=== PATIENT | female | born 1975 | race Caucasian/White ===

== ENCOUNTER 2019-09-18 21:51 | Emergency (ER) | payer OTHER ==
[~2019-09-18] VITALS: Ht 170.1 cm; Wt 108.9 kg
[~2019-09-18 21:51] MED LIST: ASPIR 8181 MG PO; AUGMENTIN 875 M1 TAB PO; IBUPROFEN 30 M800 MG PO; MOM30 M1 PO; NAPROSYN500 MG PO; NKHM; PERCOCET 325 MG1 TA5 PO; PROTONIX20 MG PO; VICODIN ES 7501 TA1 PO
[2019-09-18 21:56] VITALS: BP 110/66
[2019-09-18 22:27] LABS: BASO % 0.3 % (0.0-1.0); EOS # 0.2 10*3/uL (0.0-0.4); EOS % 1.9 % (1.0-4.0); HEMATOCRIT 41.4 % (37.0-47.0); HEMOGLOBIN 13.3 g/dl (12.0-16.0); LYMPH # 2.5 10*3/uL (1.3-4.4); LYMPH % 25.7 % (27.0-41.0); MEAN CORPUSCULAR HGB 29.9 pg (27.0-31.0); MEAN CORPUSCULAR HGB CONC 32.1 g/dl (33.0-37.0); MEAN PLATELET VOLUME 11.1 fl (9.6-12.3); MONO # 0.5 10*3/uL (0.1-1.0); MONO % 5.1 % (3.0-9.0); NEUT # 6.4 10*3/uL (2.3-7.9); NEUT % 66.6 % (47.0-73.0); PLATELET COUNT AUTOMATED 188 10*3/uL (130-400); RED BLOOD COUNT 4.45 10*6/uL (4.10-5.10); RED CELL DISTRI WIDTH 14.5 % (0-14.5); WHITE BLOOD COUNT 9.5 10*3/uL (4.8-10.8)
[2019-09-18 22:37] LABS: ACT PARTIAL THROMBO TIME 27.1 SECONDS (20.0-32.1); INTERNATIONAL NORM RATIO 0.9 (2.0-3.5)
[2019-09-18 22:46] LABS: ALKALINE PHOSPHATASE 63 U/L (45-117); BUN 13 mg/dl (7-24); CHLORIDE 107 mmol/L (98-107); CREATININE 1.03 mg/dL (0.55-1.02); POTASSIUM 3.8 mmol/L (3.5-5.1); SGOT/AST 22 IU/L (3-35); SGPT/ALT 38 U/L (12-78); SODIUM 138 mmol/L (136-145); TOTAL PROTEIN 7.1 gm/dL (6.4-8.2)
== END 2019-09-19 00:18 | disposition home or self-care (01) ==
LOC: ED 21:51
PROVIDERS: Internal Medicine
DX: S86.912A Strain of unspecified muscle(s) and tendon(s) at lower leg level, left leg, initial encounter (principal); Z79.899 Other long term (current) drug therapy; W19.XXXA Unspecified fall, initial encounter; Y93.89 Activity, other specified; Y92.89 Other specified places as the place of occurrence of the external cause; Y99.8 Other external cause status

== ENCOUNTER 2019-12-03 15:18 | Emergency (ER) | payer OTHER ==
[~2019-12-03] VITALS: Wt 113.4 kg
[2019-12-03 15:49] VITALS: BP 168/78
== END 2019-12-03 17:00 | disposition left against medical advice (07) ==
LOC: ED 15:18
DX: F10.229 Alcohol dependence with intoxication, unspecified (principal); Z79.899 Other long term (current) drug therapy

== ENCOUNTER 2020-08-01 19:25 | Emergency (ER) | payer OTHER ==
[~2020-08-01] VITALS: Wt 104.3 kg
[2020-08-01 19:43] VITALS: BP 108/82
[2020-08-01] MEDS ORDERED: CORTISPORIN SOL10 M1 OT (20:36)
== END 2020-08-01 20:46 | disposition home or self-care (01) ==
LOC: ED 19:25
DX: H60.501 Unspecified acute noninfective otitis externa, right ear (principal); K08.89 Other specified disorders of teeth and supporting structures; M54.2 Cervicalgia; F17.200 Nicotine dependence, unspecified, uncomplicated

== ENCOUNTER 2022-03-22 12:03 | Emergency (ER) | payer OTHER ==
[~2022-03-22 12:03] MED LIST changes: +CORTISPORIN SOL10 M1 OT
[2022-03-22 12:28] VITALS: BP 114/76
[2022-03-22] MEDS ORDERED: CLINDAMYCIN HC300 MG PO (12:54)
[2022-03-22] MEDS ORDERED: Motrin,Rufen800 MG PO (12:54)
== END 2022-03-22 12:47 | disposition home or self-care (01) ==
LOC: ED 12:03
DX: K08.89 Other specified disorders of teeth and supporting structures (principal); Z79.2 Long term (current) use of antibiotics; Z90.49 Acquired absence of other specified parts of digestive tract; Z98.890 Other specified postprocedural states

== ENCOUNTER 2022-09-03 15:10 | Emergency (ER) | payer OTHER ==
[~2022-09-03] VITALS: Ht 170.1 cm; Wt 117.9 kg
[~2022-09-03 15:10] MED LIST changes: +CLINDAMYCIN HC300 MG PO; +Motrin,Rufen800 MG PO
[2022-09-03 15:39] VITALS: BP 123/70
== END 2022-09-03 17:57 | disposition left against medical advice (07) ==
LOC: ED 15:10
DX: J02.9 Acute pharyngitis, unspecified (principal); Z53.21 Procedure and treatment not carried out due to patient leaving prior to being seen by health care provider; H66.93 Otitis media, unspecified, bilateral

== ENCOUNTER 2023-11-11 08:37 | Emergency (ER) | payer OTHER ==
[~2023-11-11] VITALS: Ht 167.6 cm; Wt 122.5 kg
[2023-11-11 08:43] VITALS: BP 155/83
[2023-11-11] MEDS ORDERED: AMOX-CLAV 875-1 EACH PO (08:50)
== END 2023-11-11 08:58 | disposition home or self-care (01) ==
LOC: ED 08:37
DX: K04.7 Periapical abscess without sinus (principal); Z90.49 Acquired absence of other specified parts of digestive tract; Z90.89 Acquired absence of other organs; Z98.890 Other specified postprocedural states; F17.200 Nicotine dependence, unspecified, uncomplicated

== ENCOUNTER 2023-11-29 18:54 | Emergency (ER) | payer OTHER ==
[~2023-11-29] VITALS: Ht 167.6 cm; Wt 117.9 kg
[~2023-11-29 18:54] MED LIST changes: +AMOX-CLAV 875-1 EACH PO
[2023-11-29 19:06] VITALS: BP 100/58
[2023-11-29] MEDS ORDERED: CLINDAMYCIN HCL 300 MG CAPSULE PO ONE (19:20)
[2023-11-29] MEDS ORDERED: NAPROSYN500 MG PO (19:22)
[2023-11-29] MEDS ORDERED: PERIDEX118 ML PO (19:22)
[2023-11-29] MEDS ORDERED: CLINDAMYCIN HC300 MG PO (19:22)
[2023-11-29] MEDS ORDERED: Ketorolac Tromethamine 30 MG/ML VIAL IM ONE (19:25)
== END 2023-11-29 19:51 | disposition home or self-care (01) ==
LOC: ED 18:54
DX: K02.9 Dental caries, unspecified (principal); R59.0 Localized enlarged lymph nodes; Z79.2 Long term (current) use of antibiotics; Z98.890 Other specified postprocedural states

== ENCOUNTER 2024-01-04 14:43 | Emergency (ER) | payer OTHER ==
[~2024-01-04] VITALS: Ht 167.6 cm; Wt 122.5 kg
[~2024-01-04 14:43] MED LIST changes: +PERIDEX118 ML PO
[2024-01-04 14:52] VITALS: BP 130/82
[2024-01-04 15:14] LABS: BILIRUBIN 1+ (Negative); BLOOD 2+ (Negative); CLARITY Turbid (Clear); COLOR Dark Yellow (Yellow); GLUCOSE Negative (Negative); KETONE Trace (Negative); LEUKO ESTERASE 2+ (Negative); NITRITE Positive (Negative); PH 5.5 (4.5-8.0); SPECIFIC GRAVITY >= 1.030 (1.001-1.030)
[2024-01-04 15:38] LABS: BACTERIA 3+; MUCOUS 2+; WBC TNTC wbc/hpf (0-5)
[2024-01-04 15:39] LABS: CALCIUM OXALATE CRYSTALS 1+
[2024-01-04] MEDS ORDERED: PYRIDIUM200 M1 PO (16:24)
[2024-01-04] MEDS ORDERED: SEPTDS PO (16:24)
[2024-01-04] MEDS ORDERED: Phenazopyridine Hydrochlorid2 100 MG TAB PO ONE (16:25)
[2024-01-04] MEDS ORDERED: Sulfamethoxazole/Trimethopri 1 TAB TAB PO ONE (16:25)
== END 2024-01-04 16:31 | disposition home or self-care (01) ==
LOC: ED 14:43
PROVIDERS: Physician Assistant
DX: N39.0 Urinary tract infection, site not specified (principal); Z90.49 Acquired absence of other specified parts of digestive tract; Z98.890 Other specified postprocedural states; Z90.89 Acquired absence of other organs

== ENCOUNTER 2024-03-14 12:35 | Emergency (ER) | payer OTHER ==
[~2024-03-14] VITALS: Wt 122.5 kg
[~2024-03-14 12:35] MED LIST changes: +PYRIDIUM200 M1 PO; +SEPTDS PO
[2024-03-14 13:21] VITALS: BP 128/69
[2024-03-14] MEDS ORDERED: CLINDAMYCIN HC300 MG PO (13:38)
== END 2024-03-14 13:41 | disposition home or self-care (01) ==
LOC: ED 12:35
DX: K02.9 Dental caries, unspecified (principal); Z90.49 Acquired absence of other specified parts of digestive tract; Z98.890 Other specified postprocedural states

== ENCOUNTER 2024-07-09 23:48 | Emergency (ER) | payer SELFPAY ==
[~2024-07-09] VITALS: Ht 167.6 cm; Wt 127.0 kg
[2024-07-09 23:59] VITALS: BP 153/91
[2024-07-10] MEDS ORDERED: Ondansetron Hydrochloride 4 MG TAB SL ONE (00:10)
[2024-07-10] MEDS ORDERED: CLINDAMYCIN HCL 300 MG CAPSULE PO ONE (00:10)
[2024-07-10] MEDS ORDERED: Acetaminophen/Hydrocodone 5 MG/325 MG TABLET PO ONE (00:10)
[2024-07-10] MEDS ORDERED: CLINDAMYCIN HC300 MG PO (00:13)
== END 2024-07-10 00:18 | disposition home or self-care (01) ==
LOC: ED 23:48
DX: K02.9 Dental caries, unspecified (principal); Z90.49 Acquired absence of other specified parts of digestive tract; Z90.89 Acquired absence of other organs; Z98.890 Other specified postprocedural states

== ENCOUNTER 2024-09-25 17:19 | Emergency (ER) | payer OTHER ==
[~2024-09-25] VITALS: Ht 167.6 cm; Wt 131.5 kg
[2024-09-25 17:43] VITALS: BP 138/76
[2024-09-25] MEDS ORDERED: methylPREDNISolone sod succ 125 MG VIAL IM ONE (18:50)
[2024-09-25] MEDS ORDERED: Albuterol Sulf/Ipratropium 3 ML VIAL NEB ONE (18:50)
[2024-09-25] MEDS ORDERED: PREDNISONE20 M1 PO (20:02)
[2024-09-25] MEDS ORDERED: AVPAK AZITHROM250 M1 PO (20:02)
[2024-09-25] MEDS ORDERED: AZITHROMYCIN 250 MG TAB PO ONE (20:05)
== END 2024-09-25 20:16 | disposition home or self-care (01) ==
LOC: ED 17:19
DX: J40 Bronchitis, not specified as acute or chronic (principal); R06.02 Shortness of breath; Z90.49 Acquired absence of other specified parts of digestive tract; Z90.89 Acquired absence of other organs; Z98.890 Other specified postprocedural states

== ENCOUNTER → 2025-05-22 | Outpatient (CLI) | payer OTHER ==
[~2025-05-22] MED LIST changes: +AVPAK AZITHROM250 M1 PO; +PREDNISONE20 M1 PO
== END | disposition home or self-care (01) ==
LOC: ORTHO 02:58
PROVIDERS: ATTEND Orthopaedic Surgery
DX: M25.561 Pain in right knee (principal)